=== PATIENT | male | born 1995 | race Caucasian/White ===

== ENCOUNTER 2016-06-13 18:01 | Emergency (ER) | payer BC ==
[2016-06-13 18:41] VITALS: BP 155/72
[2016-06-13] MEDS ORDERED: Ibuprofen TAB* 400 MG PO ONE (18:59)
--- NOTE | 2016-06-13 19:09 | UC ---
HPI Febrile Illness - HPI Summary HPI Summary: feeling bad since yesterday. College student. Fever, chills, body aches, terrible headache. Today sore throat, dry cough, poor appetite. Didn't measure fever today, but over 101 on presentation here. No flu shot. No known ill contacts. No diarrhea or vomiting. - History of Current Complaint Chief Complaint: UCGeneralIllness Time Seen by Provider: 06/13/16 18:52 Hx Obtained From: Patient Onset/Duration: Started Days Ago - 1 Timing: Constant Initial Severity: Mild Current Severity: Moderate Aggravating Factors: Nothing Alleviating Factors: Nothing Associated Signs and Symptoms: Arthralgia, Chills, Cough - dry, Headache, Joint Pain - diffuse, Myalgia, Nausea, Sore Throat, Weakness - Risk Factors Pseudomonas Risk Factors: Negative Serious Bacterial Infection Risk Factors: Negative - Allergy/Home Medications Allergies/Adverse Reactions: Allergies Allergy/AdvReac Type Severity Reaction Status Date / Time No Known Allergies Allergy Verified 06/13/16 18:37 Home Medications: Home Medications Ibuprofen TAB* [Advil TAB*] 600 mg PO Q6H PRN 06/13/16 [History Confirmed ] PMH/Surg Hx/FS Hx/Imm Hx Previously Healthy: Yes - Surgical History Surgery Procedure, Year, and Place: Adnoidectomy, ~2006 - Immunization History Date of Influenza Vaccine: doesn't think he had one this year Infectious Disease History: No Infectious Disease History: Reports: Traveled Outside the [place] in Last 30 Days - [place] - Family History Known Family History: Positive: Cardiac Disease, Hypertension - father Negative: Diabetes - Social History Alcohol Use: Occasionally Substance Use Type: Reports: None Smoking Status (MU): Never Smoked Tobacco Review of Systems Constitutional: Fever, Chills, Fatigue Skin: Negative Eyes: Negative ENT: Sore Throat Respiratory: Cough - dry Cardiovascular: Negative Gastrointestinal: Negative Genitourinary: Negative Motor: Negative Neurovascular: Negative Musculoskeletal: Arthralgia, Myalgia Neurological: Headache, Weakness - generalized Psychological: Negative All Other Systems Reviewed And Are Negative: Yes Physical Exam Triage Information Reviewed: Yes Appearance: Well-Appearing, No Pain Distress, Well-Nourished Vital Signs: Initial Vital Signs Temp 101.2 F 06/13/16 18:34 Pulse 100 06/13/16 18:34 Resp 16 01/23/17 18:34 BP 155/72 06/13/16 18:34 Pulse Ox 100 06/13/16 18:34 Vital Signs Reviewed: Yes Eye Exam: Normal Eyes: Positive: Conjunctiva Inflamed - slightly, bilat ENT Exam: Normal ENT: Positive: Hearing grossly normal, Pharyngeal erythema, TMs normal, Tonsillar swelling - mild. Negative: Tonsillar exudate, Trismus, Muffled/ hoarse voice Neck exam: Normal Neck: Positive: Supple, Nontender Respiratory Exam: Normal Respiratory: Positive: Lungs clear, Normal breath sounds, No respiratory distress, No accessory muscle use Cardiovascular Exam: Normal Abdominal Exam: Normal Abdomen Description: Positive: Nontender Musculoskeletal Exam: Normal Neurological Exam: Normal Neurological: Positive: Alert, Muscle Tone Normal Psychological Exam: Normal Skin Exam: Normal Diagnostics - Laboratory Diagnostic Studies Completed/Ordered: flu neg; strep neg Discharge - Discharge Plan Condition: Stable Disposition: HOME Prescriptions: Oseltamivir CAP* [Tamiflu CAP*] 75 mg PO BID #10 cap Patient Education Materials: Influenza (ED) Forms: *School Release
== END 2016-06-13 19:44 | disposition home or self-care (01) ==
LOC: UCCORT 18:01
DX: B34.9 Viral infection, unspecified (principal); J11.1 Influenza due to unidentified influenza virus with other respiratory manifestations
CPT/HCPCS: 87502; 87651; 99212; A9270-GY; G0463

== ENCOUNTER 2016-07-17 18:15 | Emergency (ER) | payer BC ==
[2016-07-17 19:31] VITALS: BP 124/70
--- NOTE | 2016-07-17 20:03 | UC ---
Eye Complaint HPI - History of Current Complaint Chief Complaint: UCEye Stated Complaint: LEFT EYE COMPLAINT Time Seen by Provider: 07/17/16 19:57 Hx Obtained From: Patient Onset/Duration: Sudden Onset, Lasting Days - 1, Worse Since - today Timing: Constant Severity Initially: Mild Severity Currently: Moderate Location of Injury: Other - no injury Character: Throbbing Aggravating Factor(s): Contact Lens - left them in for 2 days Alleviating Factor(s): Nothing Associated Signs And Symptoms: Positive: Photophobia, Drainage (Clear). Negative: Drainage (Purulent), Vision Impairment Right, Vision Impairment Left Related History: Diagnosed As: - pink eye - Risk Factors Penetrating Injury Risk Factor: Negative Globe Rupture Risk Factors: Negative Acute Glaucoma Risk Factors: Negative Optic Artery Occlusion Risk Factors: Negative - Allergies/Home Medications Allergies/Adverse Reactions: Allergies Allergy/AdvReac Type Severity Reaction Status Date / Time No Known Allergies Allergy Verified 07/17/16 19:27 PMH/Surg Hx/FS Hx/Imm Hx Cardiovascular History Of: Denies: Hypertension Respiratory History Of: Reports: Asthma - in middle school - Surgical History Surgical History: Yes Surgery Procedure, Year, and Place: Adenoidectomy, ~2007 - Family History Known Family History: Positive: Cardiac Disease, Hypertension - father Negative: Diabetes - Social History Occupation: Student Lives: Alone Alcohol Use: None Substance Use Type: None Smoking Status (MU): Never Smoked Tobacco - Immunization History Most Recent Influenza Vaccination: Not sure for Review of Systems Eyes: Drainage - watery, Eye Redness All Other Systems Reviewed And Are Negative: Yes Physical Exam Triage Information Reviewed: Yes Appearance: Well-Appearing, No Pain Distress, Well-Nourished Vital Signs: Initial Vital Signs Temp 98.6 F 07/17/16 19:27 Pulse 83 07/17/16 19:27 Resp 16 07/17/16 19:27 BP 124/70 07/17/16 19:27 Pulse Ox 98 07/17/16 19:27 Vital Signs Reviewed: Yes Eyes: Positive: Conjunctiva Inflamed - OS >>> OD, Other: - Positive fluorescein uptake on the cornea in a symmetrical circular pattern. ENT: Positive: Pharynx normal, TMs normal Respiratory Exam: Normal Cardiovascular Exam: Normal Musculoskeletal Exam: Normal Neurological Exam: Normal Psychological Exam: Normal Skin Exam: Normal Eye Complaint Course/Dx - Differential Dx/Diagnosis Differential Diagnosis/HQI/PQRI: Conjunctivitis, Corneal Abrasion, Periorbital Cellulitis Provider Diagnoses: Corneal abrasion Discharge - Discharge Plan Condition: Stable Disposition: HOME Prescriptions: Erythromycin (Ophth) [Ilotycin] 0.25 inch LEFT EYE TID #3.5 gm Patient Education Materials: Corneal Abrasion (ED), Erythromycin (Into the eye ) Additional Instructions: DO NOT USE YOUR CONTACTS UNTIL ALL THE REDNESS IS GONE. EYE OINTMENT USE: Wash hands. Place 1/4" strip across tip of finger. Pull lower lid down with the index finger and stabilize the ointment finger with the middle finger and scrape the ointment off on the lid. Pull the lid out and let go as you look down. Images Head: 1 - Positive fluorescein uptake on the cornea in a symmetrical circular pattern.
[2016-07-17] MEDS ORDERED: Fluorescein Sodium TOPICAL* 1 MG TEST ONE (20:06)
[2016-07-17] MEDS ORDERED: Erythromycin OPTH OINT* APPLIC OINT LEFT EYE ONE (20:18)
== END 2016-07-17 20:46 | disposition home or self-care (01) ==
LOC: UCCORT 18:15
DX: S05.02XA Injury of conjunctiva and corneal abrasion without foreign body, left eye, initial encounter (principal); X58.XXXA Exposure to other specified factors, initial encounter; Y93.9 Activity, unspecified; Y92.9 Unspecified place or not applicable
CPT/HCPCS: 99212; A9270-GY; G0463

== ENCOUNTER 2017-07-12 11:24 | Emergency (ER) | payer BC, OTHER ==
[2017-07-12 13:07] VITALS: BP 125/69
--- NOTE | 2017-07-12 13:32 | UC ---
UC General HPI - HPI Summary HPI Summary: pt is c/o 2 days hx fever, sore throat and thinks may be strep throat. now has headache, body aches and cough. "does not feel like when I had flu last year". - History of Current Complaint Chief Complaint: UCRespiratory Stated Complaint: ST/MARTINEZ Time Seen by Provider: 07/12/17 13:22 Hx Obtained From: Patient Onset/Duration: Gradual Onset Timing: Constant Pain Intensity: 7 Associated Signs & Symptoms: Positive: Cough, Fever, Headache. Negative: Dysuria, Nausea, SOB, Vomiting, Wheezing, Weakness - Allergy/Home Medications Allergies/Adverse Reactions: Allergies Allergy/AdvReac Type Severity Reaction Status Date / Time No Known Allergies Allergy Verified 07/12/17 13:04 PMH/Surg Hx/FS Hx/Imm Hx - Additional Past Medical History Additional PMH: Flu last yead - Surgical History Surgical History: Yes Surgery Procedure, Year, and Place: Adenoidectomy, ~2007 - Family History Known Family History: Positive: Cardiac Disease, Hypertension - father Negative: Diabetes - Social History Occupation: Student Lives: Dormitory/Roommates Alcohol Use: Rare Substance Use Type: None Smoking Status (MU): Never Smoked Tobacco - Immunization History Most Recent Influenza Vaccination: Not sure for 2015/2016 Vaccination Up to Date: Yes Review of Systems Constitutional: Fever, Chills Skin: Negative Eyes: Negative ENT: Sore Throat, Sinus Congestion Respiratory: Cough Cardiovascular: Negative Gastrointestinal: Negative Genitourinary: Negative Motor: Negative Neurovascular: Negative Musculoskeletal: Myalgia Neurological: Negative Psychological: Negative Is Patient Immunocompromised?: No All Other Systems Reviewed And Are Negative: Yes Physical Exam Triage Information Reviewed: Yes Appearance: Well-Appearing Vital Signs: Initial Vital Signs Temp 99.8 F 07/12/17 13:02 Pulse 98 07/12/17 13:02 Resp 16 07/12/17 13:02 BP 125/69 07/12/17 13:02 Pulse Ox 99 07/12/17 13:02 Vital Signs Reviewed: Yes Eyes: Positive: Conjunctiva Clear ENT: Positive: Pharyngeal erythema, TMs normal, Uvula midline. Negative: Nasal congestion, Nasal drainage, Tonsillar swelling, Tonsillar exudate, Trismus, Muffled voice, Hoarse voice, Sinus tenderness Neck: Positive: Supple, Nontender, Enlarged Nodes @ - mild peritonsialr Respiratory: Positive: Lungs clear, Normal breath sounds, No respiratory distress Cardiovascular: Positive: RRR, No Murmur Abdomen Description: Positive: Nontender, No Organomegaly, Soft Bowel Sounds: Positive: Present Musculoskeletal: Positive: ROM Intact Neurological: Positive: Alert Psychological: Positive: Age Appropriate Behavior Skin Exam: Normal Diagnostics - Laboratory Diagnostic Studies Completed/Ordered: rapid strep=+. Course/Dx - Course Course Of Treatment: rapid strep=+, will tx. no indication for influeza swab - Differential Dx - Multi-Symptom Provider Diagnoses: Strep throat Discharge - Discharge Plan Condition: Stable Disposition: HOME Prescriptions: Amoxicillin PO (*) [Amoxicillin 500 MG CAP*] 500 mg PO Q12H 10 Days #20 cap Patient Education Materials: Strep Throat (ED) Additional Instructions: FOLLOW UP [facility] IN 7 DAYS FLR RECHECK OR SOONER IF WORSE.
== END 2017-07-12 13:44 | disposition home or self-care (01) ==
LOC: UCCORT 11:24
DX: J02.0 Streptococcal pharyngitis (principal)
CPT/HCPCS: 87651; 99212; G0463

== ENCOUNTER 2018-07-05 13:53 | Emergency (ER) | payer OTHER ==
--- NOTE | 2018-07-05 14:54 | UC ---
FLU HPI - HPI Summary HPI Summary: 23 yo male presents with feeling hot/cold, runny nose, post nasal drip, and dry cough for the last 3 days. He has been taking dayquil with no change. He is a student at [employer] and many of his classmates are sick with the flu and he is concerned about this. Denies SOB, abdominal pain, n/v, rash. - History of Current Complaint Stated Complaint: COUGH,SORE THROAT,CONGESTION,FEVER Time Seen by Provider: 07/05/18 14:54 Hx Obtained From: Patient Onset/Duration: Gradual Onset Severity Currently: Mild Severity Initially: Mild Pain Intensity: 3 Pain Scale Used: 0-10 Numeric - Allergy/Home Medications Allergies/Adverse Reactions: Allergies Allergy/AdvReac Type Severity Reaction Status Date / Time No Known Allergies Allergy Verified 07/05/18 14:59 PMH/Surg Hx/FS Hx/Imm Hx - Additional Past Medical History Additional PMH: None - Surgical History Surgical History: Yes Surgery Procedure, Year, and Place: Adenoidectomy, ~2007 - Family History Known Family History: Positive: Cardiac Disease, Hypertension - father Negative: Diabetes - Social History Occupation: Student Lives: Dormitory/Roommates Alcohol Use: Rare Substance Use Type: None Smoking Status (MU): Never Smoked Tobacco - Immunization History Most Recent Influenza Vaccination: Not sure for 2016/2016 Vaccination Up to Date: Yes Review of Systems All Other Systems Reviewed And Are Negative: Yes Constitutional: Positive: Fatigue Skin: Positive: Negative Eyes: Positive: Negative ENT: Positive: Sore Throat, Nasal Discharge Respiratory: Positive: Cough Cardiovascular: Positive: Negative Gastrointestinal: Positive: Negative Neurovascular: Positive: Negative Neurological: Positive: Negative Psychological: Positive: Negative Physical Exam - Summary Physical Exam Summary: GENERAL: NAD. WDWN. No pain distress. SKIN: No rashes, sores, lesions, or open wounds. HEENT: Head: AT/NC Eyes: EOM intact. Conjunctiva clear without inflammation or discharge. Ears: Hearing grossly normal. TMs intact, no bulging, erythema, or edema. Nose: Nasal mucosa pink and moist. NTTP maxillary and frontal sinus. Throat: Posterior oropharynx without exudates, erythema, or tonsillar enlargement. Uvula midline. NECK: Supple. Nontender. No lymphadenopathy. CHEST: CTAB. No r/r/w. No accessory muscle use. Breathing comfortably and in no distress. CV: RRR. Without m/r/g. Pulses intact. Cap refill <2seconds NEURO: Alert. PSYCH: Age appropriate behavior. Triage Information Reviewed: Yes Vital Signs: Vital Signs: Temp Pulse Resp BP Pulse Ox 97.2 F 86 16 139/79 98 07/05/18 14:59 07/05/18 14:59 07/05/18 14:59 07/05/18 14:59 07/05/18 14:59 Laboratory Tests 07/05/18 15:10 Influenza A (Rapid) Negative Influenza B (Rapid) Negative Vital Signs Reviewed: Yes Flu Course/Dx - Course Course Of Treatment: POC flu negative. Suspect viral illness - pt elected to start tamiflu today as many of his classmates have the flu and he is concerned about this. - Differential Dx/Diagnosis Provider Diagnosis: Viral syndrome Discharge - Sign-Out/Discharge Documenting (check all that apply): Patient Departure All imaging exams completed and their final reports reviewed: No Studies - Discharge Plan Condition: Stable Disposition: HOME Prescriptions: Oseltamivir CAP* [Tamiflu CAP*] 75 mg PO BID #10 cap Patient Education Materials: Influenza (DC), Viral Syndrome (ED) Forms: *School Release Referrals: No Primary Care Phys,NOPCP [Primary Care Provider] - Additional Instructions: If you develop a fever, shortness of breath, chest pain, new or worsening symptoms - please call your PCP or go to the ED. - Billing Disposition and Condition Condition: STABLE Disposition: Home - Attestation Statements Provider Attestation: Per institutional requirements, I have reviewed the chart, however, I was not consulted specifically or made aware of this patient by the midlevel provider. I did not personally evaluate, interact with , or disposition this patient.
[2018-07-05 15:03] VITALS: BP 139/79
[2018-07-05 15:22] LABS: Influenza A Molecular NEGATIVE (Negative); Influenza B Molecular NEGATIVE (Negative)
== END 2018-07-05 15:29 | disposition home or self-care (01) ==
LOC: UCCORT 13:53
DX: B34.9 Viral infection, unspecified (principal); R09.89 Other specified symptoms and signs involving the circulatory and respiratory systems; R09.82 Postnasal drip; R05 Cough; J02.9 Acute pharyngitis, unspecified
CPT/HCPCS: 99212; G0463